=== PATIENT | male | born 1975 | race Hispanic/Latino ===

== ENCOUNTER 2019-06-18 21:43 | Emergency (ER) | payer MEDICAID ==
[2019-06-18] MEDS ORDERED: NARCAN 2 MG/2 ML IV ONE (21:45)
[2019-06-18] MEDS ORDERED: NACL 0.9% 1000 ML 1,000 ML IV ONE (21:50)
[2019-06-18] MEDS ORDERED: ZOFRAN IV ONE (21:50)
[2019-06-18] MEDS ORDERED: NARCAN 2 MG/2 ML ONE (21:52)
--- NOTE | 2019-06-18 22:03 | Emergency Department Report ---
ED Altered Mental Status HPI - General Stated Complaint: UNRESPONSIVE Time Seen by Provider: 06/18/19 21:49 Source: patient, family Limitations: Altered Mental Status - History of Present Illness Initial Comments: Mr. Treviño is a very pleasant 43-year-old male with history of fibromyalgia? or neurofibromatosis who presents with decreased responsiveness level consciousness. He came by private auto. His family members drove to the emergency department. He just was not breathing well his own. He had about 12 beers today. He was eating a [employer] Peanut Butter Cup when he became lethargic unresponsive. Did not appear to be choking at the time. He normally drinks about once a month. He did not feel that 12 beers would be excessive. No preceding chest pain abdominal pain and headache. He denies recreational drug use. MD Complaint: decreased responsiveness -: Sudden, This evening Severity: severe Context: alcohol abuse Associated Symptoms: denies other symptoms ED Review of Systems ROS: Stated complaint: UNRESPONSIVE Other details as noted in HPI Comment: All other systems reviewed and negative Constitutional: denies: fever, malaise Respiratory: denies: cough, shortness of breath Cardiovascular: denies: chest pain ED Past Medical Hx - Past Medical History Previous Medical History?: Yes Additional medical history: Fibromyalgia - Surgical History Past Surgical History?: Yes Additional Surgical History: Right knee surgery - Social History Smoking Status: Never Smoker Substance Use Type: Alcohol ED Physical Exam - General General appearance: obtunded, other (facial cyanosis,) - Head Head exam: Present: atraumatic, normocephalic - Eye Eye exam: Present: normal appearance - ENT ENT exam: Present: mucous membranes moist - Neck Neck exam: Present: normal inspection - Respiratory Respiratory exam: Present: normal lung sounds bilaterally. Absent: respiratory distress - Cardiovascular Cardiovascular Exam: Present: regular rate, normal rhythm. Absent: systolic murmur, diastolic murmur, rubs, gallop - GI/Abdominal GI/Abdominal exam: Present: soft, normal bowel sounds - Rectal Rectal exam: Present: deferred - Extremities Exam Extremities exam: Present: normal inspection - Back Exam Back exam: Present: normal inspection - Neurological Exam Neurological exam: Present: alert, oriented X3 - Psychiatric Psychiatric exam: Present: normal affect, normal mood - Skin Skin exam: Present: warm, dry, intact, normal color. Absent: rash - Lab Data Lab Results 06/18/19 Range/Units 22:03 POC Glucose 153 H (70-105) 06/18/19 22:21 EKG obtained 2211 Sinus tachycardia rate 120 beats minute normal axis normal intervals no significant ST elevation diffuse T-wave flattening poor R-wave progression in the anterior leads - Medical Decision Making Mr. Cadet presents with acute respiratory failure cyanosis decreased consciousness GCS of 3. He was revived with IV Naloxone. During IV access placement, I ventilated patient with ambu bag and oral airway. His skin color normalized. Oxygen saturation was [id number] ventilation 99%. Family members at the bedside was concern for possible aspiration while eating candy. He was observed for 45 minutes in the ED whereas Mr. Treviño decided to leave AGAINST MEDICAL ADVICE without further intervention. His father and significant other witnessed this conversation and decision. He understands the risk of aspiration, respiratory failure and . Also understands the risk of cardiac arrhythmia. At this time he is awake alert and insightful. He has decision-making capacity. He left the emergency department AGAINST MEDICAL ADVICE without further intervention. 35 minutes of critical care time excluding procedures were used in the care of the patient. Patient required multiple assessments and interventions. I reviewed the electronic medical record.. Without emergent intervention, patient would have had a deleterious outcome Critical Care Time: Yes Critical care time in (mins) excluding proc time.: 35 Critical care attestation.: If time is entered above; I have spent that time in minutes in the direct care of this critically ill patient, excluding procedure time. ED Disposition Clinical Impression: Acute respiratory failure, Acute metabolic encephalopathy Disposition: - LEFT AGAINST MED ADVICE Is pt being admited?: No Does the pt Need Aspirin: No Condition: Stable
[2019-06-18] MEDS ORDERED: QUELICIN ONE (23:00)
[2019-06-18] MEDS ORDERED: AMIDATE IV ONE (23:00)
[2019-06-18 23:27] VITALS: BP 134/78
== END 2019-06-18 22:15 | disposition left against medical advice (07) ==
LOC: ED 21:43
DX: J96.00 Acute respiratory failure, unspecified whether with hypoxia or hypercapnia (principal); G93.41 Metabolic encephalopathy; M79.7 Fibromyalgia; F10.10 Alcohol abuse, uncomplicated
CPT/HCPCS: 82962; 93005; 93010; 96374; 99291; J0330; J2310